=== PATIENT | male | born 1980 | race Caucasian/White ===

== ENCOUNTER 2018-07-22 14:20 | Emergency (ER) | payer MEDICAID, OTHER ==
[~2018-07-22] VITALS: Ht 182.9 cm; Wt 115.2 kg
[2018-07-22 14:50] VITALS: BP 120/78
--- NOTE | 2018-07-22 14:56 | NUR ---
PATIENT AMBULATED TO ER BED 1.
--- NOTE | 2018-07-22 15:01 | NUR ---
PT C/O THROAT PAIN X1 WEEK, ALSO REPORTS BILATERAL EAR PAIN. WAS SEEN AT URGENT CARE AND GIVEN SUDAFED AND PROMETHAZINE WITH NO RELIEF. PT DENIES N/V/D; SKIN IS INTACT, PINK/WARM/DRY; AAOX4, PERRL, WITH EVEN AND STEADY GAIT; LUNGS CLEAR BL, BREATHING UNLABORED; PT DENIES ANY FEVER, CP, SOB, OR COUGH AT THIS TIME; PT STATES 8/10 PAIN AT THIS TIME; VSS; PATIENT POSITIONED FOR COMFORT; HOB ELEVATED; BEDRAILS UP X2; BED DOWN.
[2018-07-22] MEDS ORDERED: KETOROLAC 30 MG/ML VIAL IM ONE (15:15)
[2018-07-22 16:48] VITALS: BP 120/78
--- NOTE | 2018-07-22 16:48 | NUR ---
Patient discharged with v/s stable. Written and verbal after care instructions given and explained. Patient alert, oriented and verbalized understanding of instructions. Ambulatory with steady gait. All questions addressed prior to discharge. ID band removed. Patient advised to follow up with PMD. Rx of IBUPROFREN, ACETAMINOPHEN,AZITHROMYCIN given. Patient educated on indication of medication including possible reaction and side effects. Opportunity to ask questions provided and answered.
== END 2018-07-22 16:48 | disposition home or self-care (01) ==
LOC: MED 14:20
DX: J02.8 Acute pharyngitis due to other specified organisms (principal); H61.23 Impacted cerumen, bilateral; B96.89 Other specified bacterial agents as the cause of diseases classified elsewhere; Z88.0 Allergy status to penicillin; Z98.890 Other specified postprocedural states
CPT/HCPCS: 69209; 87081; 96372; 99283; J1885

== ENCOUNTER 2018-10-02 07:51 | Emergency (ER) | payer OTHER ==
[~2018-10-02] VITALS: Ht 193 cm; Wt 111.1 kg
[2018-10-02 08:00] VITALS: BP 135/95
--- NOTE | 2018-10-02 08:03 | NUR ---
Patient ambulated to bed 12. RN evaluating patient at bedside.
--- NOTE | 2018-10-02 08:10 | NUR ---
PT PRESENTS TO ED FOR EVALUATION OF ABDOMINAL PAIN WITH N/V X 2HRS. PT AAO X4, GCS 15, ABLE TO SPEAK WITH FULL COMPLETE SENTENCES. RESPIRATIONS EVEN AND UNALBORED, BL LUNG CLEAR. SKIN WARM/PINK/DRY, +PMAC. ABDOMEN ROUND, MILD DISTENDE, HYPOACTIVE BOWEL SOUND X4. VSS, STATED BURNING LIKE PAIN TO UPPER ABDOMEN 10/10. DR. BOUCHER MADE AWARE OF PT STATUS. WILL CONTINUE TO MONITOR
--- NOTE | 2018-10-02 08:14 | NUR ---
AT BEDSIDE EVALUATING PT
[2018-10-02] MEDS ORDERED: NACL 0.9% 1,000 ML IV ONE (08:24)
[2018-10-02] MEDS ORDERED: NACL 0.9% 1,000 ML IV SCH (08:24)
[2018-10-02] MEDS ORDERED: ONDANSETRON 4 MG/2 ML VIAL IVP ONE (08:25)
[2018-10-02] MEDS ORDERED: MORPHINE SULFATE 4 MG/ML SYR IVP ONE (08:25)
[2018-10-02] MEDS ORDERED: KETOROLAC 30 MG/ML VIAL IVP ONE (08:25)
[2018-10-02] MEDS ORDERED: PROMETHAZINE 25 MG/ML VIAL IM ONE (08:25)
[2018-10-02] MEDS ORDERED: FAMOTIDINE 20 MG/2 ML VIAL IVP ONE (08:30)
[2018-10-02] MEDS ORDERED: GLYCOPYRROLATE 0.2 MG/ML VIAL IV ONE (08:30)
[2018-10-02] MEDS ORDERED: METOCLOPRAMIDE 10 MG/2 ML INJ VIAL IVP ONE (08:30)
--- NOTE | 2018-10-02 08:51 | NUR ---
Patient taken to CT scan via wheelchair by tech.
--- NOTE | 2018-10-02 09:00 | NUR ---
US AT BEDSIDE
[2018-10-02 09:23] LABS: BASOPHILS % (AUTO) 0.5 % (0.0-2.0); EOSINOPHILS # (AUTO) 0.4 K/uL (0-0.4); EOSINOPHILS % (AUTO) 5.2 % (0.0-4.0); HEMATOCRIT 47.2 % (36-52); HEMOGLOBIN 15.7 g/dL (12.0-18.0); LYMPHOCYTES # (AUTO) 1.7 K/uL (2.0-11.5); LYMPHOCYTES % (AUTO) 24.6 % (20.5-51.1); MEAN CORPUSCULAR HEMOGLOBIN 28 pg (27-31); MEAN CORPUSCULAR HGB CONC 33 g/dL (33-37); MEAN CORPUSCULAR VOLUME 82.8 fL (80-94); MONOCYTES # (AUTO) 0.6 K/uL (0.8-1.0); NEUTROPHILS # (AUTO) 4.3 K/uL (1.8-7.7); NEUTROPHILS % (AUTO) 61.7 % (42.2-75.2); PLATELET COUNT (AUTO) 281 K/uL (140-450); RED CELL DISTRIBUTION WIDTH 15.6 % (11.6-13.7); WHITE BLOOD COUNT (AUTO) 6.9 K/uL (4.8-10.8)
[2018-10-02 09:42] LABS: ACETONE, SERUM NEGATIVE (NEGATIVE)
[2018-10-02 09:44] LABS: APPEARANCE,URINE CLEAR (CLEAR); BILIRUBIN,URINE NEGATIVE (NEGATIVE); BLOOD, URINE TRACE-I (NEGATIVE); COLOR,URINE YELLOW (YELLOW); LEUKOCYTE ESTERASE ,URINE NEGATIVE (NEGATIVE); NITRITE, URINE NEGATIVE (NEGATIVE); PH,URINE 5.5 (5.0-9.0); UGLUCOSE NEGATIVE (NEGATIVE)
[2018-10-02 09:52] LABS: ALBUMIN 3.5 g/dL (3.4-5.0); AMYLASE 35 U/L (25-115); ANION GAP 8.7 (8-16); ASPARTATE AMINOTRANSFERASE 37 U/L (15-37); CARBON DIOXIDE 29.9 mmol/L (21-32); CHLORIDE 89 mmol/L (98-107); CREATININE 0.8 mg/dL (0.7-1.3); GFR ARICAN-AMERICAN 140 mL/min (>90); GLUCOSE 96 mg/dL (74-106); LIPASE 48 U/L (73-393); POTASSIUM 3.6 mmol/L (3.5-5.1); SODIUM SERUM 124 mmol/L (136-145); TOTAL BILIRUBIN 0.3 mg/dL (0.0-1.0); UREA NITROGEN, BLOOD 13 mg/dL (7-18)
[2018-10-02 10:00] LABS: RBC,URINE 0-5 /HPF (0-5); WBC,URINE 0-5 /HPF (0-5)
[2018-10-02 10:07] LABS: BARBITURATE, URINE NEGATIVE ng/ml (NEG <=200); BENZODIAZEPINE, URINE NEGATIVE ng/mL (NEG <=200); CANNABINOID, URINE POSITIVE ng/mL (NEG <=50); COCAINE, URINE NEGATIVE ng/mL (NEG <=300); OPIATE, URINE NEGATIVE ng/mL (NEG <=2000); PHENCYCLIDINE SCREEN,URINE NEGATIVE ng/mL (NEG <=25)
--- NOTE | 2018-10-02 10:07 | NUR ---
PT SLEEPING, RESPIRATIONS EVEN AND UNLABORED. VSS, ÁNGEL CUTE DISTRESS AT THIS TIME. WILL CONTINUE TO MONITOR
[2018-10-02] MEDS ORDERED: diphenhydrAMINE 50 MG/ML VIAL IVP ONE (10:15)
[2018-10-02] MEDS ORDERED: HALOPERIDOL IM 5 MG/ML VIAL IM ONE (10:15)
[2018-10-02 11:36] VITALS: BP 116/62
--- NOTE | 2018-10-02 11:36 | NUR ---
Patient discharged with v/s stable. Written and verbal after care instructions given and explained. Patient alert, oriented and verbalized understanding of instructions. Ambulatory with steady gait. All questions addressed prior to discharge. ID band removed. Patient advised to follow up with PMD. Rx of COMPAZINE 10 MG given. Patient educated on indication of medication including possible reaction and side effects. Opportunity to ask questions provided and answered.
--- NOTE | 2018-10-04 08:49 | NUR ---
Late entry. Confirmed with RN that 0.9 NS at 100 ml/hr infused until 1130.
== END 2018-10-02 11:36 | disposition home or self-care (01) ==
LOC: MED 07:51
DX: F12.10 Cannabis abuse, uncomplicated (principal); K29.70 Gastritis, unspecified, without bleeding; Z88.0 Allergy status to penicillin
CPT/HCPCS: 36415; 74176; 76705; 80053; 80305; 81001; 82009; 82150; 83605; 83690; 85025; 96361; 96372; 96374; 96375; 99284; G0482; J1200; J1630; J1885; J2270; J2405; J2550; J2765; J3490; J7030; Q0092

== ENCOUNTER 2020-05-24 03:22 | Emergency (ER) | payer OTHER ==
[~2020-05-24] VITALS: Ht 182.9 cm; Wt 115.7 kg
[2020-05-24 03:30] VITALS: BP 147/90
--- NOTE | 2020-05-24 03:33 | NUR ---
TO LOBBY A/W BED AMBULATORY
--- NOTE | 2020-05-24 03:35 | NUR ---
SEEN AND EXAMINED BY LALI WITH ORDERS AND CARRIED OUT
[2020-05-24] MEDS ORDERED: HYDROcodone/APAP 5/325 MG 1 TAB TAB PO ONE (03:40)
--- NOTE | 2020-05-24 03:50 | NUR ---
MEDICATED PER [facility] ORDER, TOLERATED WELL.
--- NOTE | 2020-05-24 08:40 | NUR ---
PT PLACED IN RIGHT KNEE IMMOBILIZOR, PT GIVEN CRUTCHES, CRUTCHES ADJUSTED TO PT HEIGHT AND SIZE, PT STATES THEY ALL READY KNOW HOW TO USE CRUTCHES, PT DEMENSTRATED PROPER USE OF CRUTCHES, RN NOTIFIED
[2020-05-24 08:52] VITALS: BP 136/88
--- NOTE | 2020-05-24 08:52 | NUR ---
Patient discharged with v/s stable. Written and verbal after care instructions given and explained. Patient alert, oriented and verbalized understanding of instructions. Ambulatory with steady gait. All questions addressed prior to discharge. ID band removed. Patient advised to follow up with PMD. Rx of [place] 5mg-325mg and Naprosyn 500mg given. Patient educated on indication of medication including possible reaction and side effects. Opportunity to ask questions provided and answered.
== END 2020-05-24 08:52 | disposition home or self-care (01) ==
LOC: MED 03:22
DX: M76.891 Other specified enthesopathies of right lower limb, excluding foot (principal)
CPT/HCPCS: 73700; 76881; 99285

== ENCOUNTER 2023-05-19 03:01 | Emergency (ER) | payer OTHER ==
[~2023-05-19] VITALS: Ht 182.9 cm; Wt 122.5 kg
[2023-05-19 03:02] VITALS: BP 129/85; PULSE 80; RESP 18; TEMP 97.9; O2SAT 97
[2023-05-19 03:07] VITALS: BP 129/85; PULSE 80; RESP 18; TEMP 97.9; O2SAT 97
[2023-05-19] MEDS ORDERED: CLIN300C52 PO (03:38)
[2023-05-19] MEDS ORDERED: cefTRIAXone 1,000 MG in LIDOCAINE MPF 1% 2.1 ML IM ONE (03:40)
[2023-05-19] MEDS ORDERED: cefTRIAXone 1,000 MG VIAL ONE (03:42)
[2023-05-19] MEDS ORDERED: LIDOCAINE MPF 1% 5 ML ONE (03:43)
[2023-05-19] MEDS ORDERED: KETOROLAC 60 MG/2 ML VIAL IM ONE (03:55)
[2023-05-19] MEDS ORDERED: BACITRACIN OINT 500 UNITS/GM PKT TP ONE (04:00)
[2023-05-19] MEDS ORDERED: NAPR-54 PO (04:01)
== END 2023-05-19 04:20 | disposition home or self-care (01) ==
LOC: MED 03:01
DX: S61.237A Puncture wound without foreign body of left little finger without damage to nail, initial encounter (principal); Z88.0 Allergy status to penicillin; Z79.899 Other long term (current) drug therapy; W54.0XXA Bitten by dog, initial encounter; Y93.89 Activity, other specified; Y92.89 Other specified places as the place of occurrence of the external cause; Y99.8 Other external cause status
CPT/HCPCS: 73140; 96372; 99284; J0696; J1885; J2001

== ENCOUNTER 2023-12-07 03:43 | Emergency (ER) | payer OTHER ==
[~2023-12-07] VITALS: Ht 182.9 cm; Wt 133.8 kg
[~2023-12-07 03:43] MED LIST: CLIN300C52 PO; NAPR-337 PO
[2023-12-07 03:51] VITALS: BP 153/95; PULSE 79; RESP 18; TEMP 97.5; O2SAT 96
[2023-12-07] MEDS ORDERED: CEPH-588 PO (04:49)
[2023-12-07] MEDS ORDERED: IBUP-2218 PO (04:49)
[2023-12-07] MEDS ORDERED: ACET-10509 PO (04:49)
[2023-12-07 04:55] VITALS: BP 153/95; PULSE 79; RESP 18; TEMP 97.5; O2SAT 96
[2023-12-07] MEDS: KETOROLAC 30 MG/ML VIAL IM ONE (04:55)
== END 2023-12-07 04:55 | disposition home or self-care (01) ==
LOC: MED 03:43
DX: L03.115 Cellulitis of right lower limb (principal); E11.9 Type 2 diabetes mellitus without complications; Z79.899 Other long term (current) drug therapy; Z88.0 Allergy status to penicillin
CPT/HCPCS: 73630; 96372; 99283; J1885; Q0092